=== PATIENT | female | born 2000 | race Two or more races ===

== ENCOUNTER 2024-04-27 22:06 | Emergency (ER) | payer BC ==
[2024-04-27] MEDS: Acetaminophen 500 MG Tab PO ONE (22:36)
[2024-04-27 22:56] LABS: APPEARANCE,URINE CLEAR; BILIRUBIN,URINE NEGATIVE (NEGATIVE); COLOR,URINE YELLOW; GLUCOSE,URINE NEGATIVE (NEGATIVE); KETONES,URINE TRACE mg/dL (NEGATIVE); LEUKOCYTE ESTERASE,URINE NEGATIVE (NEGATIVE); NITRITE,URINE NEGATIVE (NEGATIVE); OCCULT BLOOD,URINE NEGATIVE (NEGATIVE); PROTEIN,URINE NEGATIVE (NEGATIVE); UROBILINOGEN,URINE 0.2 EU/dL (<2.0)
== END 2024-04-28 00:09 | disposition home or self-care (01) ==
LOC: MW.ED 22:06
DX: O20.0 Threatened abortion (principal); Z3A.13 13 weeks gestation of pregnancy
CPT/HCPCS: 76815; 81003; 99284; A9270